=== PATIENT | female | born 1955 | race Two or more races ===

== ENCOUNTER 2016-10-30 11:31 | Emergency (ER) | payer OTHER ==
--- NOTE | ~2016-10-30 | EKG ---
PATIENT: WILLIE DAVIS UNIT #: [id number] Ventricular Rate: 101 BPM Atrial Rate: 101 BPM P-R Interval: 204 ms QRS Duration: 96 ms Q-T Interval: 378 ms QTC Calculation(Bezet): 490 ms P [place]: 45 degrees Calculated R [place]: -36 degrees Calculated T [place]: 13 degrees Diagnosis Line: Sinus tachycardia Diagnosis Line: Left axis deviation Diagnosis Line: Incomplete right bundle branch block Diagnosis Line: Voltage criteria for left ventricular hypertrophy Diagnosis Line: Abnormal ECG Diagnosis Line: Diagnosis Line: Confirmed by YESSICA GATICA MD ([id number]) on Diagnosis Line: 10/30/2016 2:28:48 PM INTERPRETING MD: EN PINEDA
--- NOTE | ~2016-10-30 | CT16 ---
[facility] A Service of [facility] RADIOLOGY TEXT RESULTS PATIENT: WILLIE DAVIS LOCATION: [facility] : 55 UNIT #: [id number] AGE: [address]: Cirilo Chopra MD SEX: F ORDER DR: [id number] [facility]. [place], [place] [address] [id number] MR#: [id number] Acc #: [id number] NAME: WILLIE DAVIS : 1955 SEX: F STUDY DATE/TIME: 10/30/2016 13:01 UNIT: [facility] ROOM: STUDY DESCRIPTION: CT Angio Chest for PE Attending Physician: Cirlio Chopra M.D. Ordering Physician: Cirilo Chopra M.D. Primary Care Physician: No Primary Care Physician MEDICAL IMAGING REPORT This report is preliminary unless electronic signature is present EXAM CT angiogram chest INDICATIONS In this. The shortness breath. Patient choked on food this morning. She is complaining of pain from the back of the throat. TECHNIQUE This CT exam was performed with one or more of the following radiation dose reduction techniques: automatic exposure control, adjustment of mA and/or kV according to patient size, and iterative reconstruction. Axial CT images were obtained from the thoracic inlet through the dome of the diaphragm following the administration of intravenous contrast. Following this 3-D reformatted images were obtained. FINDINGS No acute pulmonary thromboembolus is seen. Thoracic aorta measures within normal size limits. There is no evidence of dissection. 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 There is no pleural or pericardial effusion. Mediastinal and hilar lymph nodes do not appear pathologically enlarged. I do not see any mediastinal air. There does appear to be some mild bronchiectasis seen within the right upper lobe associated with some ground-glass infiltrate of uncertain clinical significance. This could actually be a chronic finding. Images through the upper abdomen demonstrate cholelithiasis, I do not see any other acute abnormalities. Review of bony windows did not demonstrate any aggressive osseous abnormalities. IMPRESSION [facility] A Service of [facility] RADIOLOGY TEXT RESULTS PATIENT: WILLIE DAVIS LOCATION: [facility] : 55 UNIT #: [id number] AGE: [address]: Cirilo Chopra MD SEX: F ORDER DR: 1. No acute pulmonary thromboembolus seen. 2. Thoracic aorta is normal in caliber with no evidence of dissection. 3. Some minimal bronchiectasis is seen within the right upper lobe with some associated ground-glass infiltrate, I suspect this is probably a chronic finding. The possibility of an infectious or inflammatory infiltrate is not completely excluded. Correlation with clinical presentation is recommended. 4. Cholelithiasis. Dictated by... Katiuska Littlejohn M.D. THIS IS AN ELECTRONICALLY VERIFIED REPORT aKtiuska Littlejohn M.D. at 10/31/2016 4:32 PM AFF/ea TD: 10/30/2016 21:13 JOB #: [id number] MEDICAL IMAGING REPORT Page 1 of 1 COPY
[2016-10-30 11:57] LABS: BASOPHIL# 0.1 X10e3 (0-0.3); BASOPHIL% 0.9 % (0-2.5); EOSINOPHIL# 0.3 X10e3 (0-0.7); EOSINOPHIL% 3.8 % (0.0-7.0); HEMATOCRIT 43.8 % (35.0-45.0); HEMOGLOBIN 14.3 gm/dL (12.0-16.0); LYMPHOCYTE% 23.3 % (17.0-45.0); MEAN CELL VOLUME 88.4 FL (83-96); MEAN CORPUSCULAR HEMOGLOBIN 28.8 PG (28-34); MEAN CORPUSCULAR HGB CONC 32.6 g/dL (30-36); MEAN PLATELET VOLUME 8.3 FL (6.5-11.5); MONOCYTE# 0.6 X10e3 (0-1.0); MONOCYTE% 7.5 % (3.0-12.0); NEUTROPHIL# 5.6 X10e3 (1.5-7.1); NEUTROPHIL% 64.5 % (40-75); PLATELET COUNT 258 X10e3 (140-420); RED BLOOD COUNT 4.96 X10e (3.90-5.30); RED CELL DISTRIBUTION WIDTH 13.6 % (11.0-15.5); WHITE BLOOD COUNT 8.7 X10e3 (4.0-10.5)
[2016-10-30 11:59] LABS: DIFF IND NO
[2016-10-30 12:09] LABS: POC - CKMB 1.2 ng/mL (0.0-7.9); POC - TROPONIN <0.05 ng/mL (<=0.05)
[2016-10-30 12:10] LABS: PARTIAL THROMBOPLASTIN TIME 27.1 SECONDS (23.5-31.3); PROTHROMBIN TIME (PATIENT) 10.2 SECONDS (9.6-11.5)
[2016-10-30 12:31] LABS: ALKALINE PHOSPHATASE 93 U/L (32-92); ALT (SGPT) 16 U/L (10-40); AST (SGOT) 19 U/L (10-42); BILIRUBIN,TOTAL 0.3 mg/dL (0.2-2.0); BLOOD UREA NITROGEN 7 mg/dL (9-23); BUN/CREATININE RATIO 11.66; CALCIUM SERUM 9.3 mg/dL (8.4-10.2); CARBON DIOXIDE 29 mmol/L (22-31); CHLORIDE 106 mmol/L (100-111); CREATININE SERUM 0.6 mg/dL (0.6-1.4); GLOM FILT RATE Estimated ABOVE60 mL/min (>60); GLUCOSE FASTING 112 mg/dL (70-110); POTASSIUM 3.7 mmol/L (3.5-5.1); PROTEIN TOTAL SERUM 7.6 g/dL (6.0-8.3); SODIUM 139 mmol/L (135-145)
[2016-10-30 12:32] LABS: BILIRUBIN, DIRECT <0.1 mg/dL (0.0-0.2); BILIRUBIN,INDIRECT 0.2 mg/dL (0.0-0.9)
== END 2016-10-30 15:49 | disposition home or self-care (01) ==
LOC: CED 11:31
PROVIDERS: Emergency Medicine
DX: R06.00 Dyspnea, unspecified (principal); K21.9 Gastro-esophageal reflux disease without esophagitis; M54.2 Cervicalgia
CPT/HCPCS: 36415; 71275; 80048; 80076; 82553; 84484; 85025; 85610; 85730; 93005; 96360; 99284; Q9967